=== PATIENT | female | born 1975 | race Caucasian/White ===

== ENCOUNTER 2023-07-26 07:27 | Emergency (ER) | payer OTHER ==
[~2023-07-26] VITALS: Ht 175.3 cm; Wt 68.0 kg
[2023-07-26 07:51] VITALS: BP 133/92
[2023-07-26] MEDS ORDERED: BUPR100 PO (07:54)
[2023-07-26] MEDS ORDERED: PSEU120ER PO (08:52)
[2023-07-26] MEDS ORDERED: Amoxicillin875 MG PO (08:52)
== END 2023-07-26 09:11 | disposition home or self-care (01) ==
LOC: ER 07:27
DX: J01.90 Acute sinusitis, unspecified (principal); B96.89 Other specified bacterial agents as the cause of diseases classified elsewhere; Z79.899 Other long term (current) drug therapy
CPT/HCPCS: 71046; 99283-25; A9270